=== PATIENT | male | born 1960 | race Caucasian/White ===

== ENCOUNTER → 2018-09-08 10:31 | Outpatient (CLI) | payer BC, SELFPAY ==
[2018-09-08 14:49] LABS: Cholesterol 268 mg/dL (200); High Density Lipoprotein 63 mg/dL; PSA,Total - Annual Screen 1.36 ng/mL (0.00-4.00); Triglycerides 109 mg/dL; Very Low Density Lipoprotein 22 mg/dL (5-40)
--- OUTSIDE RECORDS SUMMARY | 2018-11-03 06:38 | XMS RPT_ITS ---
:1960 Author Organization [facility] Care Team Providers Name Role Phone Harini Watkins Attending Unavailable Harini Watkins Primary Care Unavailable PROBLEMS PROBLEMS No Problem Records FoundPROCEDURES PROCEDURES No Procedure Records FoundRESULTS RESULTS LIPID PROFILE Collected: 09/08/2018 Status: F Source: ARA 10:33 AM [facility] REPOSITORY TYPE CODE TESTS RESULT OUT OF RANGE REFERENCE UNITS LAB L501.4900 200 mg/dL High CHOL 268 Result Comment: <200 mg/dL Desirable 200-240 mg/dL Borderline >240 mg/dL High Risk LAB L501.5000 mg/dL Normal TRIG 109 Result Comment: The drugs N-Acetylcysteine and Metamizole may falsely depress this assay. Serum Triglycerides Reference Interval Normal <150 mg/dL Borderline high 150 - 199 mg/dL High 200 - 499 mg/dL Very High > or = 500 mg/dL LAB L501.6400 mg/dL Normal HDL 63 Result Comment: The drugs N-Acetylcysteine and Metamizole may falsely depress this assay. Reference Range HDL <40 mg/dL Low HDL Cholesterol HDL >or= 60 mg/dL High HDL Cholesterol LAB L501.6500 0-130 mg/dL High LDL 183 LAB L501.6600 5-40 mg/dL Normal VLDL 22 Performed By: #### L500.4100, L501.9910 #### [facility] [address] [place], [address] PSA,TOTAL - ANNUAL Collected: 09/08/2018 Status: F Source: ARA SCREEN 10:33 AM [facility] REPOSITORY TYPE CODE TESTS RESULT OUT OF RANGE REFERENCE UNITS LAB L501.9910 0.00-4.00 ng/mL Normal PSA,TOT 1.36 SCREEN Result Comment: This test was performed using the TPSA assay method for the [employer] chemistry system. Values obtained with different assay methods cannot be used interchangably. When changing PSA assays in the course of monitoring a patient, additional sequential testing should be carried out to confirm baseline values. Performed By: #### L500.4100, L501.9910 #### [facility] [address] [place], [address] ALLERGIES ALLERGIES No Allergies Records FoundENCOUNTERS ENCOUNTERS ADMIT/DISCHARGE ACCOUNT ADMITTING ENCOUNTER LOCATION SOURCE NUMBER CLASS 09/08/2018 [id number] Ambulatory [address] ing:MFPLAB Repository PAYERS PAYERS ENCOUNTER GUARANTOR PAYER SUBSCRIBER SOURCE 09/08/2018 SWETHA A Primary SWETHA Reyna [id number] [facility]: [facility] [place]: [id number] [id number] Repository [id number]: [phone]) Date:[id number] [phone] () [id number], [place] [address]GZ: 09/08/2018 Secondary NOT GIVENLYDIA [place] Insurance:SELF PAY [facility] Number: Effective Repository Date:2018-09-08
== END ==
PROVIDERS: Family Provider Family Medicine; PCP Family Medicine; Visit Provider Family Medicine
DX: Z00.00 Encounter for general adult medical examination without abnormal findings (principal)
CPT/HCPCS: 36415; 80061; 84153; G0103

== ENCOUNTER → 2018-11-17 07:02 | Outpatient (CLI) | payer BC, SELFPAY ==
[2018-11-17 10:31] LABS: AST(SGOT) 24 U/L (15-37); Cholesterol 154 mg/dL (200); High Density Lipoprotein 61 mg/dL; Triglycerides 77 mg/dL; Very Low Density Lipoprotein 15 mg/dL (5-40)
== END ==
PROVIDERS: Family Provider Family Medicine; PCP Family Medicine; Referring Provider Family Medicine; Visit Provider Family Medicine
DX: E78.5 Hyperlipidemia, unspecified (principal)
CPT/HCPCS: 36415; 80061; 84450

== ENCOUNTER → 2019-09-10 10:36 | Outpatient (CLI) | payer BC, SELFPAY ==
[2019-09-10 12:41] LABS: AST(SGOT) 26 U/L (15-37); Alanine Aminotransfer ALT/SGPT 45 U/L (16-61); Cholesterol 172 mg/dL (200); High Density Lipoprotein 66 mg/dL; PSA,Total - Annual Screen 2.22 ng/mL (0.00-4.00); Triglycerides 90 mg/dL; Very Low Density Lipoprotein 18 mg/dL (5-40)
== END ==
PROVIDERS: Family Provider Family Medicine; PCP Family Medicine; Referring Provider Family Medicine; Visit Provider Family Medicine
DX: Z00.00 Encounter for general adult medical examination without abnormal findings (principal); E78.5 Hyperlipidemia, unspecified; Z12.5 Encounter for screening for malignant neoplasm of prostate
CPT/HCPCS: 36415; 80061; 84153; 84450; 84460; G0103

== ENCOUNTER → 2020-02-08 09:00 | Outpatient (CLI) | payer BC, SELFPAY ==
[2020-02-08 10:47] LABS: AST(SGOT) 26 U/L (15-37); Alanine Aminotransfer ALT/SGPT 51 U/L (16-61); Cholesterol 186 mg/dL (200); High Density Lipoprotein 66 mg/dL; Triglycerides 86 mg/dL; Very Low Density Lipoprotein 17 mg/dL (5-40)
== END ==
PROVIDERS: PCP Family Medicine; Referring Provider Family Medicine; Visit Provider Family Medicine
DX: Z00.00 Encounter for general adult medical examination without abnormal findings (principal); E78.5 Hyperlipidemia, unspecified
CPT/HCPCS: 36415; 80061; 84450; 84460

== ENCOUNTER → 2021-09-14 10:44 | Outpatient (CLI) | payer BC, SELFPAY ==
[2021-09-14 12:42] LABS: AST(SGOT) 31 U/L (15-37); Alanine Aminotransfer ALT/SGPT 40 U/L (16-61); Cholesterol 163 mg/dL (200); High Density Lipoprotein 65 mg/dL; Triglycerides 52 mg/dL; Very Low Density Lipoprotein 10 mg/dL (5-40)
== END ==
PROVIDERS: PCP Family Medicine; Referring Provider Family Medicine; Visit Provider Family Medicine
DX: E78.5 Hyperlipidemia, unspecified (principal)
CPT/HCPCS: 36415; 80061; 84450; 84460

== ENCOUNTER 2021-11-19 16:00 | Outpatient (RCR) | payer BC, SELFPAY ==
--- NOTE | 2021-10-15 18:00 | HP.PTEVAL_ITS ---
Patient's Visit Information SWETHA ORTIZ is a 61 year old M referred to Physical Therapy by Dr. Harini Watkins MD with a diagnosis of L shoulder strain. Date of Evaluation: 10/15/21 Physical Therapist: Deniz Colindres PT, ATC - Visit Plan Frequency: 1x/Week Duration: 2 Weeks Plan: Issue and instruct on HEP of rotator cuff strengthening ex's next Rx. Follow up or discharge in 1 month - Subjective Pt reports he injured his L shoulder 2 years ago while lifting heavy concrete over his head. Pt reports he has continued to be able to do all of ihis IADL's, but he continues to have pain intermittently. Pt reports he has difficulty with sleeping at night secondary to pain. Pt notes he also lacks full ROM which makes putting his clothes on difficulty. Pt is R hand dominant. Pt denies tingling and numbness in L UE at this time. Pt notes his pain is located on the lateral aspect of his L UE. Pt notes his L shoulder will pop occasionally which results in pain. L shoulder does not lock up on him. Pt reports he is limited with overhead activity secondary to pain. No Dx tests at this time. 1/10 at rest, 3/10 at worst (lifting heavy dry wall. - Pain L shoulder Pain Intensity (Out of 10): 1 Pain Intensity Range: 3 - Objective Neuro: B UE sensation is WNL to light touch. B bicepital reflex= 2/3. Palpation: Pt is very sore on the lateral aspect of L humerus. No obvious deformity present At this time. ROM: R shoulder flex= 150, abd= 155, ER= 85, IR WNL; L shoudler flex= 105, abd= 85, ER= 55, IR moderately limited. MMT: L shou lder ER and abd 4-/5. All other measurements 5/5 throughout. Special tests: pos empty can - Balance/Special Test Scores Quick DASH Score: 15.9075 - Goals Goal 1:: I with HEP in 1-2 visits Goal Time Frame: 2 Weeks - Rehabilitation Potential Physical Therapy Diagnosis: Pt has L shoulder pain, weakness, and limited ROM secondary to L shoulder rotator cuff strain Rehabilitation Potential: Excellent - Anticipated Interventions Patient/Client Instruction: Educate patient on: Condition, Plan of Care For the Purpose of:: To decrease pain, To increase ROM, To improve muscle performance and motor function Therapeutic Exercise to Include: Strength training, Endurance training, Scapular Strength/Stabilization For the Purpose of:: To decrease pain, To increase ROM, To improve muscle performance and motor function Cryotherapy (ice pack, ice massage): Yes For the Purpose of:: To decrease pain Thank you for the opportunity to evaluate your patient. For Medicare and Medicare HMO plans, please review the plan of care and approve it. It will need to be FAXED BACK to us at [phone] for Medicare purposes. For Medicare only, by signing this I certify the plan of care. Please let me know if there are questions or concerns regarding this plan of care. Physician Signature: Date:
--- NOTE | 2021-11-19 17:20 | HP.PTDCSUM ---
It has been my pleasure to treat SWETHA ORTIZ referred by Dr. Harini Watkins MD, with the diagnosis of L shoulder strain for a total of 2 visit(s). Discharge Date: Please see the following information for a summary of their discharge status. Subjective: I only have a little pain now. I am loosening up some L shoulder Pain Intensity (Out of 10): 1 % Improvement: 75 Objective/Function: L shoulder pain is 1-2/10. L shoulder ROM: flex= 145, abd= 140. L shoulder MMT: flex= 4/5. all other measurements 5/5. I with HEP Goal 1:: I with HEP in 1-2 visits Goal Progress: Goal Met Plan: Discharge If there are questions or concerns regarding this patient's physical therapy, please feel free to call me at [phone]. Thank you for the referral of this patient. Sincerely, Deniz Colindres, PT, ATC Balance/Gait/Functional tests - Balance/Special Test Scores Quick DASH Score: 4.5450
== END 2021-11-19 19:00 | disposition home or self-care (01) ==
LOC: PT 16:00
PROVIDERS: PCP Family Medicine; Referring Provider Family Medicine; Visit Provider Family Medicine
DX: S46.812D Strain of other muscles, fascia and tendons at shoulder and upper arm level, left arm, subsequent encounter (principal); X58.XXXD Exposure to other specified factors, subsequent encounter
CPT/HCPCS: 97110; 97161; 97164

== ENCOUNTER → 2022-09-15 | Outpatient (CLI) | payer BC, SELFPAY ==
[2022-09-15 12:11] LABS: Absolute Neutrophil Count 3.3 X10^3/uL (2.0-7.7); Basophil# 0.04 X10^3/uL; Basophil% 0.6 % (0-1); Eosinophil# 0.13 X10^3/uL; Eosinophils% 2.1 % (0-5); Hematocrit 41.6 % (40-54); Hemoglobin 14.2 g/dL (13.0-16.5); Lymphocyte % 33.8 % (19-41); Mean Corp Hgb Conc 34.1 g/dL (32-36); Mean Corpuscular Hgb 31.1 pg (27.0-32.0); Mean Corpuscular Volume 91.2 fL (80-94); Mean Platelet Vol. 10.1 fl (6.2-12.0); Monocyte# 0.63 X10^3/uL; Monocyte% 10.1 % (0-10); NRBC Flagged by Analyzer 0 % (0-5); Neutrophil # 3.29 X10^3/uL (2.7-7.7); Neutrophil % 53.1 % (47-70); Platelet Count 326 K/mm3 (150-450); RBC Distribution Width CV 12.4 % (11.6-14.6); RBC Distribution Width SD 41.1 fl (35.1-43.9); Red Blood Count 4.56 M/mm3 (4.6-6.2); White Blood Count 6.2 K/mm3 (4.4-11.0)
[2022-09-15 12:37] LABS: Cholesterol 222 mg/dL (200); High Density Lipoprotein 68 mg/dL; PSA,Total - Annual Screen 1.96 ng/mL (0.00-4.00); Triglycerides 75 mg/dL; Very Low Density Lipoprotein 15 mg/dL (5-40)
== END | disposition home or self-care (01) ==
LOC: MFPLAB 10:06
PROVIDERS: PCP Family Medicine; Referring Provider Family Medicine; Visit Provider Family Medicine
DX: D64.9 Anemia, unspecified (principal); E78.5 Hyperlipidemia, unspecified
CPT/HCPCS: 36415; 80061; 84153; 85025; G0103

== ENCOUNTER → 2023-09-20 | Outpatient (CLI) | payer BC, SELFPAY ==
[2023-09-20 18:41] LABS: PSA,Total - Annual Screen 2.19 ng/mL (0.00-4.00)
== END | disposition home or self-care (01) ==
LOC: MFPLAB 15:46
PROVIDERS: PCP Family Medicine; Visit Provider Family Medicine
DX: Z12.5 Encounter for screening for malignant neoplasm of prostate (principal)
CPT/HCPCS: 36415; 84153; G0103

== ENCOUNTER → 2024-11-30 | Outpatient (CLI) | payer BC, SELFPAY ==
[2024-11-30 10:13] LABS: Absolute Neutrophil Count 3.7 X10^3/uL (2.0-7.7); Basophil# 0.07 X10^3/uL; Eosinophil# 0.75 X10^3/uL; Eosinophils% 10.6 % (0-5); Hematocrit 41.9 % (40-54); Hemoglobin 13.9 g/dL (13.0-16.5); Lymphocyte % 25.5 % (19-41); Mean Corp Hgb Conc 33.2 g/dL (32-36); Mean Corpuscular Hgb 30.6 pg (27.0-32.0); Mean Corpuscular Volume 92.3 fL (80-94); Mean Platelet Vol. 9.2 fl (6.2-12.0); Monocyte# 0.68 X10^3/uL; Monocyte% 9.6 % (0-10); NRBC Flagged by Analyzer 0 % (0-5); Neutrophil # 3.73 X10^3/uL (2.7-7.7); Neutrophil % 52.9 % (47-70); Platelet Count 433 K/mm3 (150-450); RBC Distribution Width CV 12.9 % (11.6-14.6); RBC Distribution Width SD 43.9 fl (35.1-43.9); Red Blood Count 4.54 M/mm3 (4.6-6.2); White Blood Count 7.1 K/mm3 (4.4-11.0)
[2024-11-30 10:39] LABS: AST(SGOT) 30 U/L (15-37); Alanine Aminotransfer ALT/SGPT 39 U/L (16-61); Cholesterol 217 mg/dL (200); High Density Lipoprotein 69 mg/dL; PSA,Total - Annual Screen 2.75 ng/mL (0.00-4.00); Triglycerides 122 mg/dL; Very Low Density Lipoprotein 24 mg/dL (5-40)
== END | disposition home or self-care (01) ==
LOC: MTLAB 08:43
PROVIDERS: PCP Family Medicine; Referring Provider Family Medicine; Visit Provider Family Medicine
DX: E78.5 Hyperlipidemia, unspecified (principal); D64.9 Anemia, unspecified; Z12.5 Encounter for screening for malignant neoplasm of prostate
CPT/HCPCS: 36415; 80061; 84153; 84443; 84450; 84460; 85025; G0103

== ENCOUNTER → 2025-08-09 | Outpatient (CLI) | payer BC, SELFPAY ==
[2025-08-09 11:15] LABS: Anion Gap 9 (5-15); BUN 15 mg/dL (4-19); BUN/Creat Ratio 16.0 RATIO (10-20); Calcium,Total 9.3 mg/dL (7.6-11.0); Carbon Dioxide 26.1 mmol/L (21.0-32.0); Chloride 103 mmol/L (98-108); Cholesterol 219 mg/dL (<=200); Glucose 110 mg/dL (70-99); Low Density Lipoprotein Calc. 127 mg/dL; Potassium 4.3 mmol/L (3.3-5.1); Triglycerides 69 mg/dL; Very Low Density Lipoprotein 14 mg/dL (5-40); cholesterol:hdl ratio screen 2.75
== END | disposition home or self-care (01) ==
LOC: MFPLAB 08:28
PROVIDERS: PCP Family Medicine; Visit Provider Family Medicine
DX: Z00.00 Encounter for general adult medical examination without abnormal findings (principal)
CPT/HCPCS: 36415; 80048; 80061